=== PATIENT | female | born 1940 | race Caucasian/White ===

== ENCOUNTER 2024-11-30 03:15 | Emergency (ER) | payer OTHER ==
[~2024-11-30] VITALS: Ht 162.6 cm; Wt 65.0 kg
[2024-11-30 04:06] VITALS: PULSE 101; RESP 18; O2SAT 94
[2024-11-30] MEDS: PANTOPRAZOLE 40 MG/10 ML VIAL INJ IV ONE (04:15)
[2024-11-30] MEDS: SODIUM CHLORIDE 0.9% 1,000 ML IV ONE (04:15)
--- NOTE | 2024-11-30 04:50 | ED.PDOC ---
History of Present Illness HPI Comments 84 y/o F, with a Hx of colon CA s/p surgical intervention - in-remission, esophagitis, baby ASA use, and HTN, is BIBA for c/o abdominal pain, nausea, vomiting, hematemesis, and melena, today. Per EMS report, patient endorses on sudden onset of symptoms, with no prior history of, this morning, 1x hour prior to ED arrival. Patient comments on having abdominal pain, first, prior to then drinking lots of "water"and then vomiting "bright-red blood with clots" on her bed sheets and noticing her stool being "dark" in appearance when she went to use her toilet afterwards. She reports on last meal being a [employer] burger and a Dr. Betancourt soft drink, last night, that she endorses on being advised against eating such meals following recent "inflamed esophagus" diagnosis. On scene, EMS staff notes on patient's bed sheets being drenched with light, bright red vomitus and the patient's vitals being stable and within normal limits, with exception of orthostatic test yielding a systolic drop in pressure from 150 to 100. En route, patient was given 8mg of Zofran. At time of assessment, patient denies having any diarrhea, hematochezia, urinary symptoms, weakness, fatigue, shortness of breath, or other associated symptoms or modifiers at this time. Chief Complaint: Nausea/Vomiting Time Seen by MD: 03:55 Reviewed Notes: Nurses Notes, Silverware Supervisor Notes, Medications, Allergies Allergies: Coded Allergies: Penicillins (Verified Allergy, Unknown, 11/30/24) Information Source: Patient, Emergency Med Personnel Mode of Arrival: EMS Severity: Moderate Timing: Hours Duration: Since onset Prehospital treatment: 12 Lead EKG, Sign Painter Helper Review of Systems: REVIEW OF SYSTEMS: No fever, no chills, or fatigue HEENT: No sore throat, no earache, no congestion, no neck pain. Cardiac: No chest pain. No palpitations. Lungs: No shortness of breath, no cough. GI: Abdominal pain, nausea, vomiting, hematemesis, melena : No dysuria, frequency, or urgency. No hematuria. Musculoskeletal: No joint pain , no joint swelling, no extremity edema. Skin: No rash, no itching. Neuro: No headache, no dizziness, no weakness Vital Signs Vital Signs Date Time Temp Pulse Resp B/P (MAP) Pulse Ox O2 Delivery O2 Flow Rate FiO2 11/30/24 05:01 93 11/30/24 04:06 18 94 Room Air* 0 21 11/30/24 04:06 98.0 128/64 (85) 98.0 Physical Exam General: Awake, alert and oriented. No acute distress. Skin: Skin in warm, dry and intact. Appropriate color for ethnicity. Nailbeds pink with no cyanosis. HEENT: The head is normocephalic and atraumatic. Conjunctivae are clear without exudates or hemorrhage. Sclera is non-icteric. EOM are intact. No signs of nystagmus. Eyelids are normal in appearance without swelling or lesions. Oral mucosa is pink and moist. No bleeding or wounds at mouth Neck: The neck is supple with normal range of motion. No JVD. Cardiac: Heart rate and rhythm are normal. No murmurs, gallops, or rubs are auscultated. Respiratory: No signs of respiratory distress. Lung sounds are clear in all lobes bilaterally without rales, ronchi, or wheezes. Abdominal: Abdomen is soft, non-tender without distention. Bowel sounds are present and normoactive in all four quadrants. Extremities: Upper and lower extremities are atraumatic in appearance without deformity or edema. Neurological: The patient is awake, alert and oriented to person, place, and time with normal speech. Speech is clear. There is no facial asymmetry. Psychiatric: Appropriate mood and affect. Good judgement and insight. No visual or auditory hallucinations. 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 Was a procedure done?: No EKG EKG : Pulse Rate (adult): 93 Bourg: LAD Cardiac Rhythm: NSR Block: None Hypertrophy: None ST: Normal Differential Dx Considerations may include: upper GI bleed, esophagitis, gastritis, gastroenteritis, PUD, GERD, acute abdomen X-Ray, Labs, Meds, VS Vital Signs Date Time Temp Pulse Resp B/P (MAP) Pulse Ox O2 Delivery O2 Flow Rate FiO2 11/30/24 05:01 93 11/30/24 04:06 101 18 94 Room Air* 0 21 11/30/24 04:06 98.0 101 18 128/64 (85) 94 98.0 11/30/24 03:26 98.1 106 18 121/82 (95) 96 11/30/24 03:20 93 Lab Test 11/30/24 05:00 11/30/24 04:36 Range/Units Urine Color Pending Urine Clarity Pending Urine pH Pending Urine Specific [place] Pending Urine Protein Pending Urine Ketones Pending Urine Blood Pending Urine Nitrite Pending Urine Bilirubin Pending Urine Urobilinogen Pending Urine Leukocyte Esterase Pending Urine RBC Pending Urine WBC Pending Urine Squamous Epithelial Cells Pending Urine Bacteria Pending Urine Glucose Pending White Blood Count 11.6 H 4.4-10.8 10^3/uL Red Blood Count 3.60 L 4.0-5.20 10^6/uL Hemoglobin 11.4 L 12.2-16.2 g/dL Hematocrit 33.9 L 36.0-46.0 % Mean Corpuscular Volume 94.1 80.0-100.0 fL Mean Corpuscular Hemoglobin 31.6 28.0-32.0 pg Mean Corpuscular Hemoglobin Concent 33.6 32.0-36.0 g/dL Red Cell Distribution Width 13.4 11.8-14.3 % Platelet Count 355 140-450 10^3/uL Mean Platelet Volume 6.8 L 6.9-10.8 fL Neutrophils (%) (Auto) 86.0 H 37.0-80.0 % Lymphocytes (%) (Auto) 7.4 L 10.0-50.0 % Monocytes (%) (Auto) 6.3 0.0-12.0 % Eosinophils (%) (Auto) 0.1 0.0-7.0 % Basophils (%) (Auto) 0.2 0.0-2.0 % Neutrophils # (Auto) 10.0 H 1.6-8.6 10 ^3/uL Lymphocytes # (Auto) 0.9 0.4-5.4 10 ^3/uL Monocytes # (Auto) 0.7 0-1.3 10 ^3/uL Eosinophils # (Auto) 0 0-0.8 10 ^3/uL Basophils # (Auto) 0 0-0.2 10 ^3/uL Nucleated Red Blood Cells 0.0 % Prothrombin Time Pending Prothrombin Time INR Pending Sodium Level Pending Potassium Level Pending Chloride Level Pending Carbon Dioxide Level Pending Anion Gap Pending Blood Urea Nitrogen Pending Creatinine Pending Glomerular Filtration Rate Calc Pending BUN/Creatinine Ratio Pending Serum Glucose Pending Calcium Level Pending Total Bilirubin Pending Aspartate Amino Transferase (AST) Pending Alanine Aminotransferase (ALT) Pending Alkaline Phosphatase Pending Total Protein Pending Albumin Pending Current Medications Medications (Trade) Dose Ordered Sig/Marcelo Route Start Time Stop Time Status Last Admin Sodium Chloride 1,000 ml @ 1,000 mls/hr Q1H ONCE IV 11/30/24 04:00 11/30/24 04:59 DC 11/30/24 04:15 Pantoprazole Sodium (Protonix) 40 mg ONCE ONCE IV 11/30/24 04:00 11/30/24 04:01 DC 11/30/24 04:15 Time of 1ST Reevaluation: 04:25 Reevaluation 1ST: Unchanged Patient Education/Counseling: Diagnosis, Treatment Family Education/Counseling: No Family Present Departure 1 Departure Time of Disposition: 05:57 Impression: Primary Impression: Upper GI bleed Disposition: 30 STILL A PATIENT Condition: Stable Comments 84-year-old female with upper GI bleed (episode of hematemesis). Patient is stable, no further bleeding in the ED. Signs oncoming provider pending lab and imaging results. Critical Care Note Critical Care Time?: No Stability Stability form required: No Heart Score Heart Score: Heart Score Response (Comments) Value History N/A 0 EKG N/A 0 Age N/A 0 Risk Factors N/A 0 Troponin N/A 0 Total 0 I personally scribed for COLE LIU MD ([email or web address]) on 11/30/24 at 04:50. Electronically submitted by Lyndon Gonzalez ([email or web address]). I personally scribed for COLE LIU MD ([email or web address]) on 11/30/24 at 05:01. Electronically submitted by Lyndon Gonzalez ([email or web address]). COLE LIU MD Nov 30, 2024 04:50
[2024-11-30 05:26] LABS: Urine Bacteria None Seen /hpf (None Seen)
[2024-11-30 05:46] LABS: Basophils # (auto) 0 10 ^3/uL (0-0.2); Basophils % (auto) 0.2 % (0.0-2.0); Eosinophils # (auto) 0 10 ^3/uL (0-0.8); Eosinophils % (auto) 0.1 % (0.0-7.0); Hematocrit 33.9 % (36.0-46.0); Hemoglobin 11.4 g/dL (12.2-16.2); Lymphocytes # (auto) 0.9 10 ^3/uL (0.4-5.4); Lymphocytes % (auto) 7.4 % (10.0-50.0); Mean Corpuscular Hemoglobin 31.6 pg (28.0-32.0); Mean Corpuscular Hgb Conc. 33.6 g/dL (32.0-36.0); Mean Corpuscular Volume 94.1 fL (80.0-100.0); Monocytes # (auto) 0.7 10 ^3/uL (0-1.3); Monocytes % (auto) 6.3 % (0.0-12.0); Platelet Count (auto) 355 10^3/uL (140-450); Red Cell Distribution Width 13.4 % (11.8-14.3); White Blood Cell 11.6 10^3/uL (4.4-10.8)
[2024-11-30 05:50] LABS: Urine Blood Negative /uL (Negative); Urine Clarity Clear (Clear); Urine Color Light-Yellow (Yellow); Urine Protein, UAD Negative (Negative); Urine Specific Gravity 1.022 (1.001-1.035); Urine Squamous Epithelial Cell FEW /hpf (<5); Urine Urobilinogen Normal (Negative); Urine WBC 2 /hpf (0 - 5)
[2024-11-30 05:56] LABS: Alanine Aminotransferase 18 U/L (7-40); Albumin 3.9 g/dL (3.2-4.8); Alkaline Phosphatase 60 U/L (46-116); Anion Gap 8 (5-15); Aspartate Aminotransferase 16 U/L (13-40); BUN/Creatinine Ratio 68.9 (10.0-20.0); Bilirubin, Total 0.4 mg/dL (0.2-1.0); Calcium 9.1 mg/dL (8.7-10.4); Carbon Dioxide 25 mmol/L (20-31); Potassium 4.2 mmol/L (3.5-5.1); Sodium 142 mmol/L (136-145); Total Protein 6.2 g/dL (5.7-8.2)
[2024-11-30 05:57] LABS: INR 1.11 (0.9-1.15); Prothrombin Time 11.7 sec (9.3-11.8)
[2024-11-30 05:59] LABS: Blood Urea Nitrogen 51 mg/dL (9-23); Chloride 109 mmol/L (98-107); Glucose 115 mg/dL (74-106)
[2024-11-30] MEDS: IOHEXOL 300 MG/ML 100ML BOTTLE IJ ONE (06:36)
--- NOTE | 2024-11-30 07:11 | DVH ---
CLINICAL INFORMATION: 84 years old, Female; HEMATEMESIS. TECHNIQUE: Axial CT images of the abdomen and pelvis were obtained after the uneventful administrati on of 100 mL Omnipaque 300 IV contrast. Coronal and sagittal reformatted images were obtained, review ed, and stored. All CT scans at this medical facility are performed using dose modulation techniques as appropriate to a performed exam including the following: Automated exposure control was utilized; adjustment of the MA and/or KV according to patient size; and use of iterative reconstruction technVozeeme ue. CTDIvol = 8.75 mGy DLP = 440.34 mGy-cm COMPARISON: None FINDINGS: Lung bases: Mild dependent atelectasis. Small hiatal hernia. Liver: Mild hepatic steatosis. Biliary: No calcified gallstones or biliary ductal dilatation. Spleen: Unremarkable. Pancreas: Unremarkable. No inflammatory changes, ductal dilatation, or mass identified. Adrenal glands: Unremarkable. No mass. Kidneys: No hydronephrosis. 3.4 cm cyst in the mid to upper pole of the left kidney. Small wedge-shap ed area of hypo enhancement in the lower pole of the right kidney, possible small renal infarct. Aorta/Vascular: Dense atherosclerotic calcification. No abdominal aortic aneurysm. Retroperitoneum: No mass or lymphadenopathy. Bowel/mesentery: No small bowel obstruction. No free air or free fluid. Postsurgical changes of prior right hemicolectomy with enterocolonic anastomosis in the right hemiabdomen. Scattered small colonic diverticula without adjacent inflammatory changes to suggest diverticulitis. Pelvic organs: Grossly unremarkable. Bladder: Unremarkable. No mass. Abdominal wall: No mass or hernia. Bones: No acute fracture or focal intraosseous lesion. IMPRESSION: 1. Mild hepatic steatosis. 2. No small bowel obstruction. 3. Colonic diverticulosis with no CT evidence for diverticulitis. 4. Small hiatal hernia. 5. Postsurgical changes as described above. 6. Small wedge-shaped area of hypo enhancement in the inferior pole of the right kidney, possible sma ll renal infarct. Left renal cyst as described above. 7. Additional findings as detailed above.
[2024-11-30 07:40] VITALS: PULSE 83; RESP 25; O2SAT 95
--- NOTE | 2024-11-30 10:33 | ECG ---
[facility] Test Date: 2024-11-30 Test Time: 03:20:44 Pat Name: SHAR GUTIERREZ Department: ED Room: Gender: F Corporate Staff Accountant: SHERYL : 1940 Requested By: COLE LIU Order Number: [id number] Reading MD: Measurements Intervals [place] Rate: 93 P: 0 ND: 0 QRS: -34 QRSD: 84 T: 47 QT: 340 QTc: 423 Interpretive Statements Atrial fibrillation Left axis deviation Low voltage, precordial leads Consider anterior infarct Minimal ST elevation, lateral leads Please click the below link to view image of tracing.
[2024-11-30 21:56] VITALS: BP 104/78; PULSE 77; RESP 19; TEMP 98.6; O2SAT 93
[2024-11-30 22:06] LABS: COVID19 ANTIGEN SOFIA FIA NEGATIVE (NEGATIVE)
[2024-11-30 22:09] LABS: Rapid Influenza A Negative (Negative)
[2024-11-30 22:22] LABS: Rapid Influenza B Positive (Negative)
== END 2024-11-30 22:26 | disposition short-term general hospital (02) ==
LOC: EDBD 03:15 → ER 03:15 → EDSEX 03:15 → ER 22:26
DX: K92.2 Gastrointestinal hemorrhage, unspecified (principal); I10 Essential (primary) hypertension; K20.90 Esophagitis, unspecified without bleeding; K92.0 Hematemesis; K92.1 Melena; Z85.038 Personal history of other malignant neoplasm of large intestine; Z88.0 Allergy status to penicillin; Z20.822 Contact with and (suspected) exposure to COVID-19
CPT/HCPCS: 36415; 74177; 80053; 81001; 85025; 85610; 86850; 86900; 86901; 87426; 87804; 93005; 96361; 96374; 99285; J2470; J7030; Q9967